=== PATIENT | male | born 2000 | race Caucasian/White ===

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

== ENCOUNTER 2020-05-08 15:58 | Emergency (ER) | payer MEDICAID ==
[~2020-05-08] VITALS: Ht 165.1 cm; Wt 63.6 kg
[~2020-05-08 15:58] MED LIST: ONDA4TAB6 PO
[2020-05-08] MEDS ORDERED: morphine 4 MG/ML inj SYRINge IM ONE (16:15)
[2020-05-08] MEDS ORDERED: propofol 10mg/ml 20ml vial IV ONE (16:40)
[2020-05-08 17:53] VITALS: BP 126/79
== END 2020-05-08 17:55 | disposition home or self-care (01) ==
LOC: ER 15:59
DX: S43.084A Other dislocation of right shoulder joint, initial encounter (principal); Z98.890 Other specified postprocedural states; Z79.899 Other long term (current) drug therapy; X50.1XXA Overexertion from prolonged static or awkward postures, initial encounter; Y93.66 Activity, soccer; Y92.89 Other specified places as the place of occurrence of the external cause; Y99.8 Other external cause status
CPT/HCPCS: 23650; 73020; 94799; 96372; 99152; 99285; J2270